=== PATIENT | male | born 1985 | race African-American/Black ===

== ENCOUNTER 2019-06-01 14:13 | Emergency (ER) | payer MEDICARE ==
[~2019-06-01] VITALS: Ht 177.8 cm; Wt 70.5 kg
[2019-06-01 14:15] VITALS: Ht 177.8 cm; Wt 70.5 kg
[2019-06-01] MEDS ORDERED: ZOLOFT50 MG PO (14:16)
[2019-06-01 14:47] LABS: BASOPHILS 0.1 % (0-2); EOSINOPHILS 0.1 % (0-7); HEMATOCRIT 51.2 % (42.0-54.0); HEMOGLOBIN 18.6 g/dL (13.5-17.5); IMMATURE GRANULOCYTES 0.3 % (0-5); LYMPHOCYTES 17.8 % (15-50); MCH 33.4 pg (26.0-34.0); MCHC 36.3 g/dL (31.0-37.0); MCV 91.9 fL (80.0-100.0); MEAN PLATELET VOLUME 9.2 fL (7.4-10.4); MONOCYTES 5.1 % (2-11); NEUTROPHILS 76.6 % (40-80); PLATELET COUNT 187 10x3/uL (130-400); RBC 5.57 10x6/uL (4.20-6.10); RDW 13.8 % (11.5-14.5); WBC 13.7 10x3/uL (4.8-10.8)
[2019-06-01 15:00] LABS: ALKALINE PHOSPHATASE 70 U/L (46-116); ALT (SGPT) 51 U/L (10-68); BILIRUBIN - TOTAL 0.66 mg/dL (0.2-1.3); CALCIUM 9.6 mg/dL (8.5-10.1); CHLORIDE - SERUM 105 mmol/L (98-107); CREATININE - SERUM 1.2 mg/dL (0.6-1.3); POTASSIUM - SERUM 3.7 mmol/L (3.5-5.1); PROTEIN - SERUM 8.3 g/dL (6.4-8.2); SODIUM 145 mmol/L (136-145); UREA NITROGEN 15 mg/dL (7-18); eGFR NON AFRICAN AMERICAN 74 mL/min (90-120)
[2019-06-01 15:02] LABS: MAGNESIUM - SERUM 1.9 mg/dL (1.8-2.4)
[2019-06-01 15:06] LABS: CALC OSMOLALITY 286 mosm/kg (275-300)
[2019-06-01 15:52] LABS: APPEARANCE CLEAR (CLEAR); COLOR YELLOW (YELLOW); GLUCOSE NEGATIVE (NEGATIVE); NITRITE NEGATIVE (NEGATIVE); PROTEIN NEGATIVE (NEGATIVE)
[2019-06-01 15:53] LABS: BILIRUBIN NEGATIVE (NEGATIVE); KETONE NEGATIVE (NEGATIVE); UROBILINOGEN NORMAL (NORMAL)
[2019-06-01 16:00] LABS: UDS - AMPHET POSITIVE QUAL (NEGATIVE); UDS - BARB NEGATIVE QUAL (NEGATIVE); UDS - BENZO NEGATIVE QUAL (NEGATIVE); UDS - COCAINE NEGATIVE QUAL (NEGATIVE); UDS - OPIATE NEGATIVE QUAL (NEGATIVE); UDS - PCP NEGATIVE QUAL (NEGATIVE); UDS - THC NEGATIVE QUAL (NEGATIVE)
[2019-06-01 18:24] VITALS: BP 110/80
== END 2019-06-01 18:25 | disposition home or self-care (01) ==
LOC: D.ER 14:13
PROVIDERS: Emergency Medicine
DX: F10.129 Alcohol abuse with intoxication, unspecified (principal); F15.10 Other stimulant abuse, uncomplicated; F20.9 Schizophrenia, unspecified

== ENCOUNTER 2019-08-22 17:02 | Emergency (ER) | payer MEDICARE ==
[~2019-08-22] VITALS: Ht 177.8 cm; Wt 70.9 kg
[~2019-08-22 17:02] MED LIST: ZOLOFT50 MG PO
[2019-08-22 17:09] VITALS: Ht 177.8 cm; Wt 70.9 kg
[2019-08-22] MEDS ORDERED: CELEXA20 MG PO ×2 (17:11→17:41)
[2019-08-22] MEDS ORDERED: ZYPREXA10 MG PO ×2 (17:12→17:42)
[2019-08-22 17:50] VITALS: BP 122/75
== END 2019-08-22 17:51 | disposition home or self-care (01) ==
LOC: D.ER 17:02
DX: F20.9 Schizophrenia, unspecified (principal)